=== PATIENT | female | born 1995 | race Caucasian/White ===

== ENCOUNTER 2018-08-16 11:25 | Emergency (ER) | payer OTHER, SELFPAY ==
[2018-08-16 11:26] VITALS: BP 137/87; PULSE 81; RESP 18; TEMP 36.8; O2SAT 100; BMI 31.3
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
[2018-08-16] MEDS: Ibuprofen 600 MG Tablet PO (14:12)
[2018-08-16 14:19] VITALS: BP 121/76; PULSE 71; RESP 16; O2SAT 100
== END 2018-08-16 14:22 | disposition home or self-care (01) ==
LOC: ED 11:57
PROVIDERS: Emergency Provider Emergency Medicine; Family Provider Family Medicine; PCP Family Medicine
DX: S09.90XA Unspecified injury of head, initial encounter (principal); S16.1XXA Strain of muscle, fascia and tendon at neck level, initial encounter; V43.52XA Car driver injured in collision with other type car in traffic accident, initial encounter; Y93.9 Activity, unspecified; Y92.9 Unspecified place or not applicable; Y99.9 Unspecified external cause status
CPT/HCPCS: 70450; 72072; 72125; 73030; 99284